=== PATIENT | female | born 1970 | race Caucasian/White ===

== ENCOUNTER 2018-08-10 05:35 | Emergency (ER) | payer BC ==
[2018-08-10] MEDS ORDERED: SODIUM CHLORIDE 0.9% 2,000 ML IV ONE (05:59)
[2018-08-10] MEDS ORDERED: ONDANSETRON 4 MG/2 ML VIAL IVP STA (05:59)
--- NOTE | 2018-08-10 06:02 | ED Physician Documentation ---
History of Present Illness - Stated complaint Stated Complaint: VOMITING - Chief complaint Chief Complaint: Abd Pain - Additonal information Additional information: hx from pt 48 female hx of ulcerative colitis, s/p ostomy so no longer on meds, followed by [facility], moving to [facility] ate out twice yesterday - [employer] and [employer]oss this AM developed clear watery non bloody output in her ostomy then NV as well crampy abd pain thinks she has food poisoning this would NOT be atypical of her UC s/p hyst as well Review of Systems Constitutional: denies: Fever, Chills Cardiac: denies: Chest pain / pressure Respiratory: denies: Dyspnea GI: reports: Abdominal Pain (cramps), Vomiting, Diarrhea. denies: Bloody / black stool Neurologic: reports: Generalized weakness Endocrine: denies: Easy bruising / bleeding Immunocompromised: denies: Immunocompromised PD PAST MEDICAL HISTORY - Past Medical History Past Medical History: Yes GI: Pancreatitis, Ulcerative colitis - Past Surgical History Past Surgical History: Yes General: Cholecystectomy /CLASSIFICATION OFFICER: Hysterectomy - Present Medications Home Medications: Ambulatory Orders Medication Instructions Recorded Confirmed Azithromycin [Zithromax] 500 mg PO DAILY #5 tablet 08/10/18 Estradiol 08/10/18 Ondansetron Odt [Zofran] 4 mg TL Q6H PRN #10 tablet 08/10/18 Saccharomyces Boulardii [Florastor] 500 mg PO BID #20 capsule 08/10/18 - Allergies Allergies/Adverse Reactions: Allergies Allergy/AdvReac Type Severity Reaction Status Date / Time infliximab [From Remicade] Allergy Unknown Verified 08/10/18 06:33 - Social History Does the pt smoke?: No Smoking Status: Never smoker Does the pt drink ETOH?: No Does the pt have substance abuse?: No PD ED PE NORMAL - Vitals Vital signs reviewed: Yes - Neck Neck: Supple, no meningeal sign - Cardiac Cardiac: RRR - Respiratory Respiratory: No respiratory distress - Abdomen Abdomen: Soft, Other (minimal TTP no peritoneal sx, clear non bloody fluid in ostomy bag) - Derm Derm: Normal color - Extremities Extremities: Normal ROM s pain - Neuro Neuro: Alert and oriented X 3 Results - Vitals Vitals: Vital Signs - 24 hr 08/10/18 05:41 Temperature 36.8 C Heart Rate 88 Respiratory 18 Rate Blood Pressure 101/72 O2 Saturation 96 Oxygen O2 Source Room air - Tele (time rhythm occurred) 0730 Telemetry / rhythm strip: Other (normal QT) - Labs Labs: Laboratory Tests 08/10/18 08/10/18 06:15 06:15 WBC 20.0 H RBC 5.53 H Hgb 17.0 H Hct 51.7 H MCV 93.3 MCH 30.8 MCHC 33.0 RDW 12.3 Plt Count 333 MPV 7.9 Neut # (Auto) 18.5 H Lymph # (Auto) 0.7 L [place] # (Auto) 0.7 Eos # (Auto) 0.1 Baso # (Auto) 0.0 Absolute Nucleated RBC 0.01 Nucleated RBC % 0.1 Sodium 133 L Potassium 3.7 Chloride 98 L Carbon Dioxide 21 Anion Gap 14.0 H BUN 17 Creatinine 1.3 H Estimated GFR (MDRD) 44 L Glucose 135 H Calcium 9.8 PD MEDICAL DECISION MAKING - ED course ED course: labs notable for elev WBC of 20 and renal insuff likely 2/2dehydration most likely food poisoning by pt hx stool cx will take several days to be resulted but with WBC 20 and hx c/w food poisoning will rx zmax 500 PO QD X 3 d with a probiotic and zofran PRN to help stay hydrated (nl QT on tele in ED before rx) HR BP better with 2 L NS Departure - Departure Disposition: 01 Home, Self Care Clinical Impression: Dehydration Food poisoning Qualifiers: Encounter type: initial encounter Injury intent: accidental or unintentional Qualified Code(s): T62.91XA - Toxic effect of unspecified noxious substance eaten as food, accidental (unintentional), initial encounter Ulcerative colitis Qualifiers: Ulcerative colitis location: unspecified ulcerative colitis location Digestive disease complication type: without complication Qualified Code(s): K51.90 - Ulcerative colitis, unspecified, without complications Condition: Good Instructions: ED Dehydration, ED Food Poison Or Gastroenteritis Prescriptions: Azithromycin [Zithromax] 500 mg PO DAILY #5 tablet Ondansetron Odt [Zofran] 4 mg TL Q6H PRN #10 tablet PRN Reason: Nausea / Vomiting Saccharomyces Boulardii [Florastor] 500 mg PO BID #20 capsule Comments: The results of the stool culture should be back in 2-3 days. The ER staff will call you if the results indicate a need to change antibiotics. Rest and drink plenty of fluids. The zofran will help keep the vomiting under control so you can stay hydrated You need two more days of antibiotics - next dose tomorrow morning Also take a probiotic such as florastor Call your GI doctor later to see if he/she has any further recommendations Return if worse Forms: Activity restrictions
[2018-08-10 06:25] LABS: BASOPHILS % (AUTO) 0.2 %; EOSINOPHILS # (AUTO) 0.1 10^3/uL (0.0-0.7); EOSINOPHILS % (AUTO) 0.3 %; LYMPHOCYTES # (AUTO) 0.7 10^3/uL (1.5-3.5); LYMPHOCYTES % (AUTO) 3.4 %; MEAN CORPUSCULAR HEMOGLOBIN 30.8 pg (27.0-31.0); MEAN CORPUSCULAR VOLUME 93.3 fL (81.0-99.0); MEAN PLATELET VOLUME 7.9 fL (7.9-10.8); MONOCYTES # (AUTO) 0.7 10^3/uL (0.0-1.0); MONOCYTES % (AUTO) 3.6 %; NEUTROPHILS # (AUTO) 18.5 10^3/uL (1.5-6.6); NEUTROPHILS % (AUTO) 92.5 %; PLT - PLATELET COUNT 333 10^3/uL (130-450); RED BLOOD COUNT 5.53 10^6/uL (4.20-5.40); RED CELL DISTRIBUTION WIDTH 12.3 % (12.0-15.0)
[2018-08-10 06:33] LABS: CALCIUM 9.8 mg/dL (8.5-10.3); CREATININE 1.3 mg/dL (0.4-1.0)
[2018-08-10] MEDS ORDERED: AZITHROMYCIN 250 MG TABLET PO STA (07:02)
[2018-08-10 08:03] VITALS: BP 110/74
== END 2018-08-10 08:02 | disposition home or self-care (01) ==
LOC: ED 05:35
DX: A05.8 Other specified bacterial foodborne intoxications (principal); E86.0 Dehydration; N28.9 Disorder of kidney and ureter, unspecified; K51.90 Ulcerative colitis, unspecified, without complications; Z93.3 Colostomy status
CPT/HCPCS: 36415; 80048; 85025; 87045; 87046; 96374; 99283; A9270

== ENCOUNTER 2018-08-11 17:17 | Emergency (ER) | payer BC ==
[2018-08-11 17:50] LABS: BASOPHILS % (AUTO) 0.3 %; EOSINOPHILS % (AUTO) 0.3 %; HGB - HEMOGLOBIN 17.4 g/dL (12.0-16.0); LYMPHOCYTES % (AUTO) 13.2 %; MEAN CORPUSCULAR HGB CONC 33.5 g/dL (32.0-36.0); MEAN CORPUSCULAR VOLUME 92.5 fL (81.0-99.0); MEAN PLATELET VOLUME 7.7 fL (7.9-10.8); MONOCYTES # (AUTO) 0.5 10^3/uL (0.0-1.0); MONOCYTES % (AUTO) 7.1 %; NEUTROPHILS # (AUTO) 6.1 10^3/uL (1.5-6.6); NEUTROPHILS % (AUTO) 79.1 %; PLT - PLATELET COUNT 354 10^3/uL (130-450); RED BLOOD COUNT 5.61 10^6/uL (4.20-5.40); RED CELL DISTRIBUTION WIDTH 12.4 % (12.0-15.0); WHITE BLOOD COUNT 7.7 x10^3/uL (4.8-10.8)
[2018-08-11 18:17] LABS: ALBUMIN 4.5 g/dL (3.2-5.5); ALBUMIN/GLOBULIN RATIO 0.9 (1.0-2.2); BILIRUBIN,TOTAL 0.8 mg/dL (0.2-1.0); CALCIUM 9.4 mg/dL (8.5-10.3); CREATININE 1.5 mg/dL (0.4-1.0); TOTAL PROTEIN 9.7 g/dL (6.7-8.2)
[2018-08-11 19:47] LABS: GLUCOSE, URINE (UA) NEGATIVE (NEGATIVE); KETONES,URINE (UA) 15 mg/dL (NEGATIVE); LEUKOCYTE ESTERASE, URINE NEGATIVE (NEGATIVE); NITRITE,URINE NEGATIVE (NEGATIVE); OCCULT BLOOD,URINE SMALL (NEGATIVE); PH,URINE 5.5 PH (5.0-7.5); PROTEIN,URINE 30 mg/dL (NEGATIVE); UROBILINOGEN,URINE 0.2 (NORMAL) E.U./dL (NORMAL)
--- NOTE | 2018-08-11 19:51 | ED Physician Documentation ---
ED Addendum - Addendum Addendum: 08/11/18 19:48 unscheduled return visit chart accessed for follow up and educational purposes pt seen yesterday for food poisoning has ulcerative colitis and ostomy was dehydrated stool cx has come back she is already on zithromax 500 PO QD X 3 d which is appropriate tx asked culture log nurse this AM to contact pt with the + cx results she has GI specialist in [place]
[2018-08-11 20:02] LABS: BILIRUBIN,URINE SMALL (NEGATIVE); CLARITY,URINE CLEAR (CLEAR); ICTOTEST,URINE POSITIVE
--- NOTE | 2018-08-11 20:10 | ED Physician Documentation ---
PD HPI NVD - Stated complaint Stated Complaint: CRAMPY/CANT EAT - Chief complaint Chief Complaint: Abd Pain - History obtained from History obtained from: Patient - History of Present Illness Timing - onset: How many days ago (2-3) Timing - details: Gradual onset Associated symptoms: Abdominal pain (cramping). No: Fever Improved by: Other (nothing) Worsened by: Eating Recently seen: Emergency Dept (yesterday) - Additonal information Additional information: T+R from this ED yesterday for N/V/D (watery green stool into ostomy). Returns due to feeling dehydrated; she feels she is not able to keep up intake compared to the amount of output to ostomy. She has had intermittent nausea but no vomiting. Today had some episodes of generalized weakness and fatigue as well as lower extremity cramping. Review of Systems Constitutional: reports: Fatigue. denies: Fever, Chills, Sweats Cardiac: reports: Reviewed and negative Respiratory: reports: Reviewed and negative GI: reports: Abdominal Pain (cramping), Nausea, Diarrhea. denies: Vomiting : denies: Dysuria, Frequency Neurologic: reports: Generalized weakness, Headache. denies: Focal weakness, Numbness PD PAST MEDICAL HISTORY - Past Medical History Past Medical History: Yes GI: Pancreatitis, Ulcerative colitis - Past Surgical History Past Surgical History: Yes General: Cholecystectomy /CONTRACTS DIRECTOR: Hysterectomy - Present Medications Home Medications: Ambulatory Orders Medication Instructions Recorded Confirmed Azithromycin [Zithromax] 500 mg PO DAILY #5 tablet 08/10/18 Estradiol 08/10/18 Ondansetron Odt [Zofran] 4 mg TL Q6H PRN #10 tablet 08/10/18 Saccharomyces Boulardii [Florastor] 500 mg PO BID #20 capsule 08/10/18 - Allergies Allergies/Adverse Reactions: Allergies Allergy/AdvReac Type Severity Reaction Status Date / Time infliximab [From Remicade] Allergy Unknown Verified 08/10/18 06:33 - Social History Does the pt smoke?: No Smoking Status: Never smoker Does the pt drink ETOH?: No Does the pt have substance abuse?: No PD ED PE NORMAL - Vitals Vital signs reviewed: Yes - General General: Alert and oriented X 3, No acute distress, Well developed/nourished - HEENT HEENT: Other (pasty/tacky mucous membranes) - Neck Neck: Supple, no meningeal sign - Cardiac Cardiac: RRR, No murmur - Respiratory Respiratory: No respiratory distress, Clear bilaterally - Abdomen Abdomen: Normal bowel sounds, Soft, Non tender, Non distended, Other (ostomy RLQ with liquid green stool in bag) - Female Female : Cutter Gas present - Back Back: No CVA TTP - Derm Derm: Normal color, Warm and dry - Extremities Extremities: No edema - Neuro Neuro: Alert and oriented X 3 Results - Vitals Vitals: Vital Signs - 24 hr 08/11/18 08/11/18 08/11/18 17:22 21:50 23:28 Temperature 36.2 C L 36.8 C Heart Rate 100 88 80 Respiratory 18 18 20 Rate Blood Pressure 102/67 118/83 H 116/81 H O2 Saturation 95 96 98 Oxygen O2 Source Room air - Labs Labs: Laboratory Tests 08/11/18 08/11/18 08/11/18 17:44 17:44 19:31 WBC 7.7 RBC 5.61 H Hgb 17.4 H Hct 51.9 H MCV 92.5 MCH 31.0 MCHC 33.5 RDW 12.4 Plt Count 354 MPV 7.7 L Neut # (Auto) 6.1 Lymph # (Auto) 1.0 L [place] # (Auto) 0.5 Eos # (Auto) 0.0 Baso # (Auto) 0.0 Absolute Nucleated RBC 0.00 Nucleated RBC % 0.1 Sodium 129 L Potassium 4.0 Chloride 94 L Carbon Dioxide 19 L Anion Gap 16.0 H BUN 26 H Creatinine 1.5 H Estimated GFR (MDRD) 37 L Glucose 143 H Calcium 9.4 Total Bilirubin 0.8 AST 31 ALT 25 Alkaline Phosphatase 112 Total Protein 9.7 H Albumin 4.5 Globulin 5.2 H Albumin/Globulin Ratio 0.9 L Lipase 23 Urine Color YELLOW Urine Clarity CLEAR Urine pH 5.5 Ur Specific [place] >=1.030 H Urine Protein 30 H Urine Glucose (UA) NEGATIVE Urine Ketones 15 H Urine Occult Blood SMALL H Urine Nitrite NEGATIVE Urine Bilirubin SMALL H Urine Urobilinogen 0.2 (NORMAL) Ur Leukocyte Esterase NEGATIVE Urine RBC 0-5 Urine WBC 0-3 Ur Squamous Epith Cells RARE Squamous Urine Bacteria None Seen Urine Casts >50 Hyaline Casts Ur Microscopic Review INDICATED Urine Culture Comments NOT INDICATED PD MEDICAL DECISION MAKING - ED course Complexity details: reviewed old records, reviewed results, re-evaluated patient, considered differential, d/w patient ED course: On reevaluation after IV fluids (2 liters NS), well hydrated with MMM, reports feeling much better. Departure - Departure Disposition: 01 Home, Self Care Clinical Impression: Campylobacter enteritis Condition: Good Instructions: Campylobacter Infec Follow-Up: Av Heller DO [Primary Care Provider] - Within 3 Days Comments: Finish the antibiotic (azithromycin) as prescribed Discharge Date/Time: 08/11/18 23:31
[2018-08-11 20:12] LABS: BACTERIA,URINE None Seen /HPF (None Seen); CASTS, URINE >50 Hyaline Casts /LPF; RBC,URINE 0-5 /HPF (0-5); SQUAMOUS EPITHELIAL CELL,UR RARE Squamous (<= Few)
[2018-08-11] MEDS ORDERED: SODIUM CHLORIDE 0.9% 1,000 ML IV STA (20:30)
[2018-08-11 23:29] VITALS: BP 116/81
== END 2018-08-11 23:31 | disposition home or self-care (01) ==
LOC: ED 17:17
DX: A04.5 Campylobacter enteritis (principal); Z93.3 Colostomy status
CPT/HCPCS: 36415; 80053; 81001; 81003; 83690; 85025; 87086; 96360; 99283

== ENCOUNTER 2021-10-29 15:44 | Outpatient (CLI) | payer BC ==
--- NOTE | 2021-10-29 16:59 | XRAY Report ---
PROCEDURE: Foot 2 View LT INDICATIONS: L FOOT PX TECHNIQUE: 2 views of the foot were acquired. COMPARISON: None. FINDINGS: BONES: No acute, displaced fracture or dislocation. Minimal hallux valgus with mild degeneration of t he first MTP. Small plantar calcaneal enthesophyte. SOFT TISSUES: No focal abnormality. IMPRESSION: 1.No acute osseous abnormality. Reviewed by: Mansoor Mascorro MD on 10/29/2021 4:57 PM [facility] Approved by: Mansoor Mascorro MD on 10/29/2021 4:57 PM [facility] Station ID: [id number]
== END 2021-10-29 23:59 | disposition home or self-care (01) ==
LOC: DI.N 15:44
PROVIDERS: ATTEND Nurse Practitioner
DX: M79.672 Pain in left foot (principal)

== ENCOUNTER 2022-11-04 09:27 | Emergency (ER) | payer BC ==
[2022-11-04 10:09] LABS: BASOPHILS # (AUTO) 0.1 10^3/uL (0.0-0.1); BASOPHILS % (AUTO) 0.9 %; EOSINOPHILS # (AUTO) 0.1 10^3/uL (0.0-0.7); EOSINOPHILS % (AUTO) 1.1 %; HCT - HEMATOCRIT 45.7 % (37.0-47.0); LYMPHOCYTES # (AUTO) 1.6 10^3/uL (1.5-3.5); LYMPHOCYTES % (AUTO) 23.4 %; MEAN CORPUSCULAR HEMOGLOBIN 31.7 pg (27.0-31.0); MEAN CORPUSCULAR VOLUME 90.5 fL (81.0-99.0); MONOCYTES # (AUTO) 0.3 10^3/uL (0.0-1.0); MONOCYTES % (AUTO) 4.9 %; NEUTROPHILS # (AUTO) 4.9 10^3/uL (1.5-6.6); NEUTROPHILS % (AUTO) 69.6 %; PLT - PLATELET COUNT 321 10^3/uL (130-450); RED BLOOD COUNT 5.05 10^6/uL (4.20-5.40); RED CELL DISTRIBUTION WIDTH 11.6 % (12.0-15.0)
[2022-11-04 10:21] LABS: ALBUMIN 4.1 g/dL (3.2-5.5); BILIRUBIN,TOTAL 0.8 mg/dL (0.2-1.0); CALCIUM 9.2 mg/dL (8.5-10.3); POTASSIUM 3.6 mmol/L (3.5-5.0); TOTAL PROTEIN 8.3 g/dL (6.7-8.2)
--- NOTE | 2022-11-04 11:34 | ED Physician Documentation ---
PD HPI ABD PAIN - Stated complaint Stated Complaint: ABD/BACK PX - Chief complaint Chief Complaint: Abd Pain - History obtained from History obtained from: Patient - History of Present Illness Timing - onset: How many weeks ago (several weeks of undulating severity left upper abd pain. No change with eating nor urinating. has had normal output from ileostomy. Some worse with movements. Has history of UC with prior colectomy. Has appt with gi tomorrow but was hurting much more last night and today.) Timing - details: Gradual onset, Still present (worse the past 1-2 days.), Waxing and waning Quality: Cramping, Aching, Pain Location: Epigastric, LUQ Radiation: Left flank Improved by: Laying still. No: Eating Worsened by: Moving. No: Eating, Breathing, Palpation Associated symptoms: Nausea. No: Fever, Vomiting, Constipation (normal output from ileostomy.), Melena, Dysuria Similar symptoms before: Diagnosis (prior abd pains had related to UC, but not had problems since colectomy. had prior biliary pancreatitis that had felt similar as well.) Recently seen: Not recently seen Review of Systems Constitutional: denies: Fever, Chills Nose: denies: Rhinorrhea / runny nose, Congestion Throat: denies: Sore throat Respiratory: denies: Cough GI: reports: Abdominal Pain, Nausea. denies: Vomiting, Bloody / black stool : denies: Dysuria, Frequency Skin: denies: Rash PD PAST MEDICAL HISTORY - Past Medical History Cardiovascular: None Respiratory: None Endocrine/Autoimmune: None GI: Pancreatitis, Ulcerative colitis - Past Surgical History Past Surgical History: Yes General: Cholecystectomy, Bowel surgery /DIRECTOR PLANS: Hysterectomy - Present Medications Home Medications: Ambulatory Orders Medication Instructions Recorded Confirmed Azithromycin [Zithromax] 500 mg PO DAILY #5 tablet 08/10/18 Ondansetron Odt [Zofran] 4 mg TL Q6H PRN #10 tablet 08/10/18 Saccharomyces Boulardii [Florastor] 500 mg PO BID #20 capsule 08/10/18 estradioL [Estradiol (Twice 08/10/18 Weekly)] - Allergies Allergies/Adverse Reactions: Allergies Allergy/AdvReac Type Severity Reaction Status Date / Time infliximab [From Remicade] Allergy Unknown Verified 11/04/22 09:41 - Social History Does the pt smoke?: No Smoking Status: Never smoker Does the pt drink ETOH?: No Does the pt have substance abuse?: No PD ED PE NORMAL - Vitals Vital signs reviewed: Yes - General General: Alert and oriented X 3, Well developed/nourished - Cardiac Cardiac: RRR, No murmur - Respiratory Respiratory: Clear bilaterally - Abdomen Abdomen: Normal bowel sounds, Soft, Non distended, No organomegaly, Other (tender left uppar abd with some local guarding. no percussion nor rebound tenderness. Ileostomy mid abd with pink healthy mucosal tissue and normal appearing output without blood.) Results - Vitals Vitals: Vital Signs - 24 hr 11/04/22 11/04/22 11/04/22 09:38 12:00 14:00 Temperature 36.9 C Heart Rate 129 H 106 H 86 Respiratory 20 20 22 Rate Blood Pressure 159/90 H 128/78 115/70 O2 Saturation 98 99 98 Oxygen O2 Source Room air - Labs Labs: Laboratory Tests 11/04/22 11/04/22 11/04/22 09:43 10:04 10:04 WBC 7.0 RBC 5.05 Hgb 16.0 Hct 45.7 MCV 90.5 MCH 31.7 H MCHC 35.0 RDW 11.6 L Plt Count 321 MPV 9.0 Neut # (Auto) 4.9 Lymph # (Auto) 1.6 [place] # (Auto) 0.3 Eos # (Auto) 0.1 Baso # (Auto) 0.1 Absolute Nucleated RBC 0.00 Nucleated RBC % 0.0 ESR Sodium 137 Potassium 3.6 Chloride 105 Carbon Dioxide 24 Anion Gap 8.0 BUN 12 Creatinine 1.0 Estimated GFR (MDRD) 58 L Glucose 103 H Calcium 9.2 Magnesium Total Bilirubin 0.8 AST 24 ALT 30 Alkaline Phosphatase 107 C-Reactive Protein Total Protein 8.3 H Albumin 4.1 Globulin 4.2 Albumin/Globulin Ratio 1.0 Lipase 30 Urine Color DARK YELLOW Urine Clarity CLEAR Urine pH 5.5 Ur Specific [place] 1.025 Urine Protein NEGATIVE Urine Glucose (UA) NEGATIVE Urine Ketones NEGATIVE Urine Occult Blood TRACE-INTA Urine Nitrite NEGATIVE Urine Bilirubin NEGATIVE Urine Urobilinogen 0.2 (NORMAL) Ur Leukocyte Esterase NEGATIVE Ur Microscopic Review NOT INDICATED Urine Culture Comments NOT INDICATED 11/04/22 11/04/22 10:04 10:04 WBC RBC Hgb Hct MCV MCH MCHC RDW Plt Count MPV Neut # (Auto) Lymph # (Auto) [place] # (Auto) Eos # (Auto) Baso # (Auto) Absolute Nucleated RBC Nucleated RBC % ESR 4 Sodium Potassium Chloride Carbon Dioxide Anion Gap BUN Creatinine Estimated GFR (MDRD) Glucose Calcium Magnesium 2.3 Total Bilirubin AST ALT Alkaline Phosphatase C-Reactive Protein 1.6 H Total Protein Albumin Globulin Albumin/Globulin Ratio Lipase Urine Color Urine Clarity Urine pH Ur Specific [place] Urine Protein Urine Glucose (UA) Urine Ketones Urine Occult Blood Urine Nitrite Urine Bilirubin Urine Urobilinogen Ur Leukocyte Esterase Ur Microscopic Review Urine Culture Comments - Rads (name of study) abd/pelvic CT Relevant Findings:: Prelim report reviewed (no acute abnormality. S/p colectomy and cholecystectomy. ), See rad report PD Medical Decision Making - ED course Complexity details: reviewed results, considered differential (patint given pain meds iwth improvment. Just toradol as declined opiate meds at this time. ), d/w patient Reviewed Lab Results: unclear the cause of her pain. No acute process on CT and labs. Not pancreatitis. For the location, i would consider gastric, such as ulcer or gastritis. No rash to consider shingles. No kidney stones on ct or UTI on UA. She has follow up appt with gi tomorrow, so they can direct further workup. Departure - Departure Disposition: 01 Home, Self Care Clinical Impression: Left sided abdominal pain Condition: Stable Record reviewed to determine appropriate education?: Yes Instructions: ED Abdominal Pain Female Non-Specific Abdominal Pain Follow-Up: Wade Gold MD [Primary Care Provider] - Comments: It is unclear the cause of your abdominal pain. Your CT scan does not show any acute localized process to account for it. Your blood tests are normal with regard to liver and pancreas numbers and generally blood count. Your inflammation markers are low/normal. Your urine does not show any signs of infection. At this point my guess would be perhaps a stomach irritation given the location. I realize it was not being affected by eating but I would still suggest trying some acid reducing medicine such as pantoprazole or omeprazole daily for the next couple of weeks. Add Maalox or Mylanta type antacids 4 times daily. Use Tylenol every 4-6 hours if needed for pains. Follow-up with your gastroenterology appointment tomorrow as planned. Discharge Date/Time: 11/04/22 15:02
[2022-11-04 11:41] LABS: BILIRUBIN,URINE NEGATIVE (NEGATIVE); GLUCOSE, URINE (UA) NEGATIVE (NEGATIVE); KETONES,URINE (UA) NEGATIVE (NEGATIVE); LEUKOCYTE ESTERASE, URINE NEGATIVE (NEGATIVE); NITRITE,URINE NEGATIVE (NEGATIVE); OCCULT BLOOD,URINE TRACE-INTA (NEGATIVE); PH,URINE 5.5 PH (5.0-7.5); PROTEIN,URINE NEGATIVE (NEGATIVE); UROBILINOGEN,URINE 0.2 (NORMAL) E.U./dL (NORMAL)
[2022-11-04 11:42] LABS: CLARITY,URINE CLEAR (CLEAR)
[2022-11-04] MEDS ORDERED: MAG HYDROX/AL HYDROX/SIMETH 30 ML UDC PO STA (12:16)
[2022-11-04] MEDS ORDERED: KETOROLAC 15 MG/ML VIAL IVP STA (12:16)
[2022-11-04] MEDS ORDERED: SODIUM CHLORIDE 0.9% 1,000 ML IV STA (12:18)
[2022-11-04 12:42] LABS: CRP - C-REACTIVE PROTEIN 1.6 mg/dL (0-1.0); MAGNESIUM 2.3 mg/dL (1.7-2.8)
[2022-11-04] MEDS ORDERED: iohexoL-300 100 ML VIAL ONE (12:44)
--- NOTE | 2022-11-04 13:41 | CT Report ---
PROCEDURE: ABDOMEN/PELVIS W INDICATIONS: left to upper abd pain; h/o UC. CONTRAST: 100ml Omnipaque 300 TECHNIQUE: After the administration of intravenous contrast, 5 mm thick sections acquired from the diaphragms to the symphysis. 5 mm thick coronal and sagittal reformats were acquired. For radiation dose reducti on, the following was used: automated exposure control, adjustment of mA and/or kV according to natalya ent size. COMPARISON: None. FINDINGS: Image quality: Excellent. ABDOMEN: Lung bases: Lung bases are clear. Heart size is normal. 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 Additional subcentimeter hypoattenuating right renal lesions, too small to characterize by CT. Cholecystectomy. Remaining solid organs are unremarkable. Peritoneum and bowel: Total colectomy and right lower quadrant ileostomy. Normal colonic caliber. Nodes and vessels: No retroperitoneal or mesenteric adenopathy by size criteria. Aorta and inferior vena cava are normal in size. Miscellaneous: Parastomal hernia containing loops of nondistended small bowel. PELVIS: Genitourinary: Bladder wall thickness is normal. Postsurgical changes along the posterior bladder w all. Miscellaneous: No inguinal hernias or adenopathy. Bones: No suspicious bony lesions. No vertebral body compression fractures. IMPRESSION: 1.No acute inflammatory process identified. 2.Total colectomy and right lower quadrant ileostomy. Parastomal hernia containing loops of nondisten ded small bowel. Reviewed by: Manuel Holguin on 11/04/2022 1:40 PM PDT Approved by: Manuel Holguin on 11/04/2022 1:40 PM PDT Station ID: [id number]
[2022-11-04 14:03] VITALS: BP 115/70
[2022-11-04] MEDS ORDERED: iohexoL-300 100 ML VIAL IVP ONE (14:45)
[2022-11-04] MEDS ORDERED: ACETAMINOPHEN 325 MG TABLET PO STA (14:47)
[2022-11-04] MEDS ORDERED: PANTOPRAZOLE 40 MG TABLET PO STA (14:47)
== END 2022-11-04 15:02 | disposition home or self-care (01) ==
LOC: ED 09:27
DX: R10.12 Left upper quadrant pain (principal); Z90.49 Acquired absence of other specified parts of digestive tract
CPT/HCPCS: 36415; 74177; 80053; 81003; 83690; 83735; 85025; 85651; 86140; 96361; 96374; 99283; 99284; A9270; Q9967; 81001; 87086